=== PATIENT | female | born 1955 | race Caucasian/White ===

== ENCOUNTER 2017-03-19 11:06 | Emergency (ER) | payer SELFPAY ==
[2017-03-19 11:26] VITALS: BP 188/92
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
== END 2017-03-19 12:01 | disposition home or self-care (01) ==
LOC: UCEAST 11:06
DX: M25.512 Pain in left shoulder (principal); M25.532 Pain in left wrist; V47.0XXA Car driver injured in collision with fixed or stationary object in nontraffic accident, initial encounter
CPT/HCPCS: 99212; G0463

== ENCOUNTER 2017-10-01 00:28 | Emergency (ER) | payer SELFPAY ==
[2017-10-01] MEDS ORDERED: Ibuprofen TAB* 600 MG PO ONE (01:35)
--- NOTE | 2017-10-01 02:17 | ED ---
Upper Extremity Pain - HPI Summary HPI Summary: 61F presents with right elbow injury today. She slipped over her chair and landed on her right elbow. She has pain over her olecranon process. She denies any numbness or tingling. She denies any previous injury to the area. She denies any humerus or wrist pain. She has not taken anything for pain. ice makes it better. movement makes it worst. She is right handed. - History of Current Complaint Chief Complaint: EDExtremityUpper Stated Complaint: RT ELBOW INJURY Time Seen by Provider: 10/01/17 01:26 - Allergies/Home Medications Allergies/Adverse Reactions: Allergies Allergy/AdvReac Type Severity Reaction Status Date / Time Azithromycin [From Zithromax] Allergy Intermediate Rash Verified 10/01/17 00:36 PMH/Surg Hx/FS Hx/Imm Hx Endocrine/Hematology History: Denies: Hx Diabetes Comment Only: Hx Anticoagulant Therapy - Yes/ASA Cardiovascular History: Reports: Hx Angina - PT STATES DX WITH "ATYPICAL ANGINA ", Hx Hypertension - MEDS Denies: Hx Coronary Artery Disease, Hx Hypercholesterolemia, Hx Myocardial Infarction, Hx Valvular Heart Disease Respiratory History: Denies: Hx Asthma, Hx Chronic Obstructive Pulmonary Disease (COPD) GI History: Reports: Hx Gastroesophageal Reflux Disease, Hx Irritable Bowel History: Denies: Hx Renal Disease Sensory History: Reports: Hx Contacts or Glasses Opthamlomology History: Reports: Hx Contacts or Glasses Psychiatric History: Reports: Hx Post Traumatic Stress Disorder - Surgical History Surgery Procedure, Year, and Place: gall bladder removed x3 years ago; lumpectomy in 2002 (benign); appendix removed 1977; dnc x2; exploratory lap with lysis of adhesions 1984. Hx Anesthesia Reactions: No - nausea Infectious Disease History: No Infectious Disease History: Denies: Traveled Outside the [place] in Last 30 Days - Family History Known Family History: Negative: Blood Disorder - Social History Alcohol Use: None Substance Use Type: Reports: None Hx Tobacco Use: Yes Smoking Status (MU): Former Smoker Review of Systems Negative: Fever Negative: Chest Pain Negative: Shortness Of Breath Positive: Myalgia - right elbow pain All Other Systems Reviewed And Are Negative: Yes Physical Exam Triage Information Reviewed: Yes Vital Signs On Initial Exam: Initial Vitals Temp Pulse Resp BP Pulse Ox 98.0 F 67 16 186/76 98 10/01/17 00:30 10/01/17 00:30 10/01/17 00:30 10/01/17 00:30 10/01/17 00:30 Vital Signs Reviewed: Yes Appearance: Positive: Well-Appearing Skin: Positive: Warm, Dry Head/Face: Positive: Normal Head/Face Inspection Eyes: Positive: Normal, Conjunctiva Clear Respiratory/Lung Sounds: Positive: Clear to Auscultation, Breath Sounds Present Cardiovascular: Positive: Normal, RRR Musculoskeletal: Positive: Limited @ - right elbow, Other - tenderness over olecranon, good pulses, capillary refill<2 secs, sensation grossly intact Neurological: Positive: Normal Psychiatric: Positive: Normal Diagnostics - Vital Signs Vital Signs Temp Pulse Resp BP Pulse Ox 10/01/17 00:30 98.0 F 67 16 186/76 98 - Laboratory Lab Statement: Any lab studies that have been ordered have been reviewed, and results considered in the medical decision making process. - Radiology elbow Xray Interpretation: Positive (See Comments) - anterior fat pad, possible joint effusion Radiology Interpretation Completed By: ED Physician Course/Dx - Course Course Of Treatment: 61F presents with right elbow injury today. She slipped over her chair and landed on her right elbow. She has pain over her olecranon process. She denies any numbness or tingling. She denies any previous injury to the area. She denies any humerus or wrist pain. She has not taken anything for pain. ice makes it better. movement makes it worst. She is right handed. on exam tenderness over olecranon process. neurovascular intact. xray shows anterior fat pad and possible joint effusion read by me, will treat as radial head fracture with sling and RICE. will have follow up with ortho. patient understand and agrees with plan. - Diagnoses Differential Diagnosis/HQI/PQRI: Positive: Fracture (Closed), Strain, Sprain Provider Diagnoses: Injury of right elbow Discharge - Discharge Plan Condition: Good Disposition: HOME Patient Education Materials: Elbow Fracture (ED) Referrals: Waldo AMAYA,Theodore Hadley [Primary Care Provider] - Daljit Girard MD [Medical Doctor] - Additional Instructions: Due to swelling around elbow will treat as radial head fracture Keep elbow in sling as needed Follow up with ortho Use ibuprofen for pain or Tylenol every 6 hours for pain Ice, elevate Return to ED if develop any new or worsening symptoms
[2017-10-01 03:56] VITALS: BP 133/80
--- NOTE | 2017-10-01 07:58 | RAD ---
INDICATION: Right elbow injury. TECHNIQUE: 4 views of the right elbow were obtained. FINDINGS: The bones are in normal alignment. No joint effusion or fracture is seen. Joint spaces appear maintained. IMPRESSION: NO EVIDENCE FOR FRACTURE.
--- NOTE | 2017-10-01 08:08 | RAD ---
INDICATION: Right forearm injury. TECHNIQUE: 2 views of the right forearm were obtained. FINDINGS: The bones are in normal alignment. No fracture is seen. IMPRESSION: NO EVIDENCE FOR FRACTURE.
== END 2017-10-01 02:55 | disposition home or self-care (01) ==
LOC: ED 00:28
DX: S59.901A Unspecified injury of right elbow, initial encounter (principal); W01.0XXA Fall on same level from slipping, tripping and stumbling without subsequent striking against object, initial encounter; Y92.9 Unspecified place or not applicable; Z87.891 Personal history of nicotine dependence
CPT/HCPCS: 99282; A9270-GY

== ENCOUNTER 2018-01-27 04:01 | Emergency (ER) | payer BC ==
[2018-01-27] MEDS ORDERED: Nitroglycerin TAB 0.4 MG* 0.4 MG TAB SL ONE (04:48)
[2018-01-27 05:36] LABS: ABS Basophils 0.1 10^3/ul (0-0.2); ABS Eosinophils 0.1 10^3/ul (0-0.6); ABS Lymphocytes 1.2 10^3/ul (1.0-4.8); ABS Monocytes 0.4 10^3/ul (0-0.8); ABS Neutrophils 4.6 10^3/ul (1.5-7.7); ABS Nucleated RBC 0 10^3/ul; Eosinophil % 1.2 % (0-6); Hematocrit 37 % (35-47); Hemoglobin 12.4 g/dl (12.0-16.0); Mean Corpuscular HGB Conc 34 g/dl (31-36); Mean Corpuscular Hemoglobin 30 pg (27-31); Mean Corpuscular Volume 89 fL (80-97); Mean Platelet Volume 6.5 um3 (7.4-10.4); Nucleated Red Blood Cells % 0; Platelet Count 328 10^3/ul (150-450); Red Blood Count 4.09 10^6/ul (4.0-5.4); Red Cell Distribution Width 14 % (10.5-15); White Blood Count 6.3 10^3/ul (3.5-10.8)
[2018-01-27 05:46] LABS: INR 0.86 (0.77-1.02)
[2018-01-27 05:53] LABS: EGFR Non-African American 45.1 (>60)
--- NOTE | 2018-01-27 06:57 | ED ---
Ady Cerda Rebecca, scribed for Rajeev Patton MD on 01/27/18 at 0448 . HPI Chest Pain - HPI Summary HPI Summary: Pt is a 62 y/o F BIBA who presents to ED c/o CP. Pain began this morning at about 1430 after standing up suddenly from sitting while on her break at work. Pain described initially as heaviness and now burning in the central chest. Took 324 mg ASA SLEDGER. Additionally c/o intermittent LUE heaviness and L neck pressure and dizziness. Pt reports that she "just didn't feel right." Dizziness has improved since onset, predominantly only present when moving from lying back to sitting up. Reports that since arriving in the ED, her symptoms have improved and she now feels mostly normal. Confirms that she was able to move her arm the entire time. Denies nausea, diaphoresis, SOB, slurred speech, and ear pain. Notes that she occasionally experiences GERD which is how the pain currently feels. PMHx positional vertigo. Dx of viral PNA 3 weeks ago. - History of Current Complaint Chief Complaint: EDDizziness Time Seen by Provider: 01/27/18 04:17 Hx Obtained From: Patient Onset/Duration: Started Hours Ago Current Severity: None Pain Intensity: 0 Pain Scale Used: 0-10 Numeric Chest Pain Location: Mid Sternal Character: Burning, Heaviness Associated Signs and Symptoms: Positive: Dizziness. Negative: Shortness of Breath, Diaphoresis, Nausea - Allergy/Home Medications Allergies/Adverse Reactions: Allergies Allergy/AdvReac Type Severity Reaction Status Date / Time azithromycin [From Zithromax] Allergy Hives Verified 01/27/18 04:39 PMH/Surg Hx/FS Hx/Imm Hx Endocrine/Hematology History: Denies: Hx Diabetes Comment Only: Hx Anticoagulant Therapy - Yes/ASA Cardiovascular History: Reports: Hx Angina - PT STATES DX WITH "ATYPICAL ANGINA ", Hx Hypertension - MEDS Denies: Hx Coronary Artery Disease, Hx Hypercholesterolemia, Hx Myocardial Infarction, Hx Valvular Heart Disease Respiratory History: Denies: Hx Asthma, Hx Chronic Obstructive Pulmonary Disease (COPD) GI History: Reports: Hx Gastroesophageal Reflux Disease, Hx Irritable Bowel History: Denies: Hx Renal Disease Sensory History: Reports: Hx Contacts or Glasses Opthamlomology History: Reports: Hx Contacts or Glasses Psychiatric History: Reports: Hx Post Traumatic Stress Disorder - Surgical History Surgery Procedure, Year, and Place: gall bladder removed x3 years ago; lumpectomy in 2002 (benign); appendix removed 1977; dnc x2; exploratory lap with lysis of adhesions 1984. Hx Anesthesia Reactions: No - nausea Infectious Disease History: No Infectious Disease History: Denies: Traveled Outside the [place] in Last 30 Days - Family History Known Family History: Negative: Blood Disorder - Social History Alcohol Use: None Substance Use Type: Reports: None Hx Tobacco Use: Yes Smoking Status (MU): Former Smoker Review of Systems Negative: Skin Diaphoresis Negative: Ear Ache Positive: Chest Pain Negative: Shortness Of Breath Negative: Nausea Positive: Other - LUE heaviness, L neck pressure Neurological: Other - Dizziness Negative: Slurred Speech All Other Systems Reviewed And Are Negative: Yes Physical Exam - Summary Physical Exam Summary: General: well-appearing, no pain distress Skin: warm, color reflects adequate perfusion, dry Head: normal Eyes: EOMI, GHAZAL ENT: normal Neck: supple, nontender Respiratory: CTA, breath sounds present Cardiovascular: RRR Abdomen: soft, nontender Bowel: present Musculoskeletal: normal, strength/ROM intact Neurological: normal, sensory/motor intact, A&O x3 Psychological: affect/mood appropriate Triage Information Reviewed: Yes Vital Signs On Initial Exam: Initial Vitals Temp Pulse Resp BP Pulse Ox 97.1 F 69 20 195/101 98 01/27/18 04:20 01/27/18 04:20 01/27/18 04:20 01/27/18 04:20 01/27/18 04:20 Vital Signs Reviewed: Yes Diagnostics - Vital Signs Vital Signs Temp Pulse Resp BP Pulse Ox 01/27/18 04:20 97.1 F 69 20 195/101 98 - Laboratory Lab Results: Lab Results 01/27/18 01/27/18 01/27/18 Range/Units 05:20 05:20 05:20 WBC 6.3 (3.5-10.8) 10^3/ul RBC 4.09 (4.0-5.4) 10^6/ul Hgb 12.4 (12.0-16.0) g/dl Hct 37 (35-47) % MCV 89 (80-97) fL MCH 30 (27-31) pg MCHC 34 (31-36) g/dl RDW 14 (10.5-15) % Plt Count 328 (150-450) 10^3/ul MPV 6.5 L (7.4-10.4) um3 Neut % (Auto) 73.2 (38-83) % Lymph % (Auto) 19.0 L (25-47) % Porter % (Auto) 5.6 (0-7) % Eos % (Auto) 1.2 (0-6) % Baso % (Auto) 1.0 (0-2) % Absolute Neuts (auto) 4.6 (1.5-7.7) 10^3/ul Absolute Lymphs (auto) 1.2 (1.0-4.8) 10^3/ul Absolute Monos (auto) 0.4 (0-0.8) 10^3/ul Absolute Eos (auto) 0.1 (0-0.6) 10^3/ul Absolute Basos (auto) 0.1 (0-0.2) 10^3/ul Absolute Nucleated RBC 0 10^3/ul Nucleated RBC % 0 INR (Anticoag Therapy) 0.86 (0.77-1.02) APTT 30.2 (26.0-36.3) seconds D-Dimer, Quantitative < 200 (Less Than 230) ng/mL Sodium 138 L (139-145) mmol/L Potassium 4.2 (3.5-5.0) mmol/L Chloride 101 (101-111) mmol/L Carbon Dioxide 29 (22-32) mmol/L Anion Gap 8 (2-11) mmol/L BUN 19 (6-24) mg/dL Creatinine 1.21 H (0.51-0.95) mg/dL Est GFR ( Amer) 58.0 (>60) Est GFR (Non-Af Amer) 45.1 (>60) BUN/Creatinine Ratio 15.7 (8-20) Glucose 113 H (70-100) mg/dL Lactic Acid (0.5-2.0) mmol/L Calcium 9.8 (8.6-10.3) mg/dL Magnesium 2.3 (1.9-2.7) mg/dL Total Bilirubin 0.30 (0.2-1.0) mg/dL AST 16 (13-39) U/L ALT 14 (7-52) U/L Alkaline Phosphatase 79 (34-104) U/L Total Creatine Kinase 58 (10-223) U/L CK-MB (CK-2) 1.2 (0.6-6.3) ng/mL Troponin I 0.00 (<0.04) ng/mL C-Reactive Protein 9.82 H (< 5.00) mg/L B-Natriuretic Peptide ( - 100) pg/mL Total Protein 7.3 (6.4-8.9) g/dL Albumin 4.2 (3.2-5.2) g/dL Globulin 3.1 (2-4) g/dL Albumin/Globulin Ratio 1.4 (1-3) Lipase 58 (11.0-82.0) U/L TSH 1.89 (0.34-5.60) mcIU/mL 01/27/18 01/27/18 Range/Units 05:20 05:21 WBC (3.5-10.8) 10^3/ul RBC (4.0-5.4) 10^6/ul Hgb (12.0-16.0) g/dl Hct (35-47) % MCV (80-97) fL MCH (27-31) pg MCHC (31-36) g/dl RDW (10.5-15) % Plt Count (150-450) 10^3/ul MPV (7.4-10.4) um3 Neut % (Auto) (38-83) % Lymph % (Auto) (25-47) % Porter % (Auto) (0-7) % Eos % (Auto) (0-6) % Baso % (Auto) (0-2) % Absolute Neuts (auto) (1.5-7.7) 10^3/ul Absolute Lymphs (auto) (1.0-4.8) 10^3/ul Absolute Monos (auto) (0-0.8) 10^3/ul Absolute Eos (auto) (0-0.6) 10^3/ul Absolute Basos (auto) (0-0.2) 10^3/ul Absolute Nucleated RBC 10^3/ul Nucleated RBC % INR (Anticoag Therapy) (0.77-1.02) APTT (26.0-36.3) seconds D-Dimer, Quantitative (Less Than 230) ng/mL Sodium (139-145) mmol/L Potassium (3.5-5.0) mmol/L Chloride (101-111) mmol/L Carbon Dioxide (22-32) mmol/L Anion Gap (2-11) mmol/L BUN (6-24) mg/dL Creatinine (0.51-0.95) mg/dL Est GFR ( Amer) (>60) Est GFR (Non-Af Amer) (>60) BUN/Creatinine Ratio (8-20) Glucose (70-100) mg/dL Lactic Acid 0.8 (0.5-2.0) mmol/L Calcium (8.6-10.3) mg/dL Magnesium (1.9-2.7) mg/dL Total Bilirubin (0.2-1.0) mg/dL AST (13-39) U/L ALT (7-52) U/L Alkaline Phosphatase (34-104) U/L Total Creatine Kinase (10-223) U/L CK-MB (CK-2) (0.6-6.3) ng/mL Troponin I (<0.04) ng/mL C-Reactive Protein (< 5.00) mg/L B-Natriuretic Peptide 58 ( - 100) pg/mL Total Protein (6.4-8.9) g/dL Albumin (3.2-5.2) g/dL Globulin (2-4) g/dL Albumin/Globulin Ratio (1-3) Lipase (11.0-82.0) U/L TSH (0.34-5.60) mcIU/mL Result Diagrams: 18 05:20 18 05:20 Lab Statement: Any lab studies that have been ordered have been reviewed, and results considered in the medical decision making process. - Radiology CXR Xray Interpretation: No Acute Changes - NAD Radiology Interpretation Completed By: ED Physician - EKG 0421 Cardiac Rate: NL - 64 bpm EKG Rhythm: Sinus Rhythm Ectopy: None EKG Interpretation: Flipped T waves in V1, V2 and lead III Re-Evaluation - Re-Evaluation First Eval Re-Evaluation Time: 05:36 Change: Improved Comment: Pt is feeling better, she declined the NTG and her BP has gone down. Second Eval Re-Evaluation Time: 06:15 Comment: Discussed results and whether she would like to be admitted. Will consider whether she wants to be admitted or not. Third Eval Re-Evaluation Time: 06:32 Comment: After consideration, the pt has decided that she does not want to be admitted and instead, wants to go home. Chest Pain Course/Dx - Course Course Of Treatment: IMPROVED IN THE ED. I RECOMMENDED ADMISSION FOR HER CHEST PAIN AND OTHER SX. SHE DECLINED ADMISSION. SHE WILL F/U WITH HER PMD; WILL RETURN IF WORSE. Assessment/Plan: Medications reviewed. Allergy noted. BP noted and advised to follow up with PCP. - Diagnoses Provider Diagnoses: HTN (hypertension), Chest pain Discharge - Sign-Out/Discharge Documenting (check all that apply): Discharge/Admit/Transfer - Discharge Plan Condition: Stable Disposition: HOME Patient Education Materials: Chest Pain (ED), Hypertension (ED) Referrals: Waldo AMAYA,Theodore Hadley [Primary Care Provider] - Additional Instructions: FOLLOW UP WITH YOUR DOCTOR FOR YOUR CHEST PAIN AND HYPERTENSION. CALL TODAY FOR FOLLOW UP. DISCUSS HAVING A CARDIAC STRESS TEST WITH YOUR DOCTOR. RETURN TO THE EMERGENCY DEPARTMENT FOR ANY WORSENING OF YOUR CONDITION; CHEST PAIN, SHORTNESS OF BREATH, YOU FEEL ILL OR QUESTIONS OR CONCERNS. - Billing Disposition and Condition Condition: STABLE Disposition: HOME The documentation as recorded by the Ady crowley Rebecca accurately reflects the service I personally performed and the decisions made by me, Rajeev Patton MD.
[2018-01-27 07:10] VITALS: BP 144/75
--- NOTE | 2018-01-27 08:08 | RAD ---
INDICATION: Chest pain COMPARISON: Chest x-ray August 05, 2012 TECHNIQUE: Single AP portable view of the chest was obtained. FINDINGS: Image quality is compromised due to the relative inferiority of a portable chest x-ray. The heart and mediastinum exhibit normal size and contour. The lungs are grossly clear. There is no evidence of a large pleural effusion. Visualized bones are normal for the patient's age. IMPRESSION: No radiographic evidence for acute cardiopulmonary abnormality on this portable chest x-ray.
== END 2018-01-27 07:16 | disposition home or self-care (01) ==
LOC: ED 04:01
DX: R07.9 Chest pain, unspecified (principal); I10 Essential (primary) hypertension; Z87.891 Personal history of nicotine dependence; Z88.3 Allergy status to other anti-infective agents
CPT/HCPCS: 36415; 71045; 80053; 82550; 82553; 83605; 83690; 83735; 83880; 84443; 84484; 85025; 85379; 85610; 85730; 86140; 93005; 99282